=== PATIENT | female | born 1940 | race Caucasian/White ===

== ENCOUNTER 2018-12-12 14:10 | Outpatient (REF) | payer OTHER, SELFPAY ==
[2018-12-12 18:57] LABS: Glucose 88 mg/dL (70-100)
[2018-12-12 19:12] LABS: Calculated LDL 103 mg/dL; Cholesterol 216 mg/dL (50-200); HDL Cholesterol 107 mg/dL (40-60); Triglyceride 32 mg/dL (30-150)
== END 2018-12-12 14:30 ==
LOC: NCHCN 14:10
PROVIDERS: PCP Internal Medicine; Visit Provider Nurse Practitioner Family
DX: E78.00 Pure hypercholesterolemia, unspecified (principal); Z13.1 Encounter for screening for diabetes mellitus
CPT/HCPCS: 80061; 82947; 83721

== ENCOUNTER 2020-01-03 19:44 | Outpatient (REF) | payer OTHER, SELFPAY ==
[2020-01-03 22:09] LABS: Anion Gap 7.3 mmol/L (3-11); BUN 14 mg/dL (7-18); CO2 26.7 mmol/L (21.0-32.0); CREATININE 0.62 mg/dL (0.55-1.02); Calcium 9.1 mg/dL (8.5-10.1); Calculated LDL 141 mg/dL (<100); Chloride 101 mmol/L (98-107); Cholesterol 252 mg/dL (<200); Glucose 86 mg/dL (74-106); HDL Cholesterol 104 mg/dL (40-60); Potassium 4.4 mmol/L (3.5-5.1); Sodium 135 mmol/L (136-145); Triglyceride 35 mg/dL (<150)
[2020-01-03 22:12] LABS: Hemoglobin A1C 5.8 % (3.8-5.6)
[2020-01-04 17:34] LABS: Progesterone <0.2 ng/mL (See Table)
[2020-01-09 15:39] LABS: Estradiol, Mass Spectrometry 22 pg/mL; Estrone 137 pg/mL
== END 2020-01-03 20:04 ==
LOC: NCHCN 19:44
PROVIDERS: PCP Internal Medicine; Visit Provider Nurse Practitioner Family
DX: E78.5 Hyperlipidemia, unspecified (principal); R73.09 Other abnormal glucose; Z79.890 Hormone replacement therapy
CPT/HCPCS: 80048; 80061; 82306; 82670; 82679; 83036; 84144

== ENCOUNTER 2021-10-29 08:56 | Outpatient (REF) | payer MEDICARE, SELFPAY ==
[2021-10-29 20:42] LABS: Abs Immature Grans 0.03 10^3/uL (0.0-0.06); Absolute Basophil Count 0.02 10^3/uL (0.0-0.2); Absolute Lymphocyte Count 1.64 10^3/uL (1.2-3.4); Absolute Monocyte Count 0.62 10^3/uL (0.1-0.8); Absolute Neutrophil Count 2.85 10^3/uL (1.2-6.7); Basophils % 0.4; Eosinophils % 1.9; HCT 42.8 % (36.0-46.0); HGB 14.2 g/dL (11.2-15.7); Immature Grans % 0.6; Lymphocytes % 31.2; MCH 32.9 pg (27.0-33.0); MCHC 33.2 % (32.0-36.0); MCV 99 fL (80-95); MPV 9.3 fL (8.0-11.0); Monocytes % 11.8; Neutrophils % 54.1; Platelet Count 254 10^3/uL (130-400); RBC 4.31 10^6/uL (3.93-5.22); RDW 12.9 % (11.7-14.6); RDW-SD 47.8 fL; WBC 5.26 10^3/uL (4.4-10.8)
[2021-10-29 21:12] LABS: Hemoglobin A1C 5.8 % (<5.7)
[2021-10-29 21:23] LABS: ALT 25 U/L (14-59); AST 23 U/L (15-37); Albumin 3.7 g/dL (3.4-5.0); Alkaline Phosphatase 72 U/L (46-116); Anion Gap 6.6 mmol/L (3-11); BUN 18 mg/dL (7-18); Bilirubin, Total 0.7 mg/dL (0.2-1.0); CO2 30.4 mmol/L (21.0-32.0); CREATININE 0.7 mg/dL (0.55-1.02); Calcium 8.9 mg/dL (8.5-10.1); Calculated LDL 117 mg/dL (<100); Chloride 103 mmol/L (98-107); Cholesterol 227 mg/dL (<200); Glucose 92 mg/dL (74-106); HDL Cholesterol 103 mg/dL (40-60); Potassium 4.4 mmol/L (3.5-5.1); Sodium 140 mmol/L (136-145); TSH 1.15 uIU/mL (0.36-3.74); Total Protein 6.7 g/dL (6.4-8.2); Triglyceride 36 mg/dL (<150); Vitamin B12 739 pg/mL (193-986)
== END 2021-10-29 08:57 | disposition home or self-care (01) ==
LOC: NCHCN 08:56
PROVIDERS: PCP Internal Medicine; Visit Provider Nurse Practitioner Family
DX: R73.03 Prediabetes (principal); R03.0 Elevated blood-pressure reading, without diagnosis of hypertension; R79.89 Other specified abnormal findings of blood chemistry; R68.89 Other general symptoms and signs
CPT/HCPCS: 80053; 80061; 82607; 83036; 84443; 85025

== ENCOUNTER → 2021-11-25 01:04 | Outpatient (CLI) | payer MEDICARE, SELFPAY ==
--- NOTE | 2021-11-25 | DI.US_ITS ---
APPROVED REPORT Exam: Exercise Treadmill Patient Location: Out-Patient Room/Bed: Stress Nurse: Celi Grove RN Ordering Provider:ASHLI BECKWITH, Contact Number: [phone] BMI: 22.79 Baseline Rhythm: Sinus Rhythm Indications: SOB Medical History Medical History: Hyperlipidemia, prediabetes, SOB Cardiac Medications: None Allergies: PNA vaccine Cardiac Risk Factors: Hyperlipidemia, prediabetes, family hx Previous Cardiac Procedures: None Pretest Chest Pain Characteristics: None Exercise History: Indeterminate Physical Disabilities: None Lung Sounds: Clear to auscultation Heart Sounds: Regular Stress Test Details Test: Exercise stress testing was performed using a Bret protocol. Rest Stress HR Resting HR Supine: 76 bpm Max Heart Rate (APMHR): 141 bpm Resting HR Standin bpm Target HR (85% APMHR): 119 bpm Max HR Achieved: 141 bpm % of APMHR: 100 Recovery HR: 87 bpm HR response to stress: Normal HR response to stress BP Resting BP Supine: 142/78 mmHg Resting BP Standin/68 mmHg Max BP: 178/82 mmHg Recovery BP: 138/63 mmHg BP response to stress: Normal blood pressure response to stress. ECG Resting ECG: Sinus Rhythm Ectopy: None Stress ECG: Sinus Tachycardia ST Change: No significant ST segment changes noted Arrhythmia: Rare PVC, VPC's, Atrial fibrillation, SVT Recovery ECG: Sinus Rhythm Recovery ST Change: No significant ST segment changes noted Recovery Arrhythmia: Occasional PVCs, VPC Clinical Reason for Termination: Fatigue Stress Symptoms: General Fatigue, Dyspnea Exercise duration: 7 min59 sec Highest Stage Reached: Stage 3: 3.4 mph at 14% grade. Exercise capacity: 10.10 METs Angina Score: None Worthington Treadmill Score: 7.7 Rate Pressure Product: [id number] Stress ECG Conclusion 1. Resting electrocardiogram was within normal limits 2. Patient exercised on the Bret protocol and completed a workload of 10.10 METS 3. Normal heart rate and blood pressure response to exercise. Patient achieved 100% of predicted hea rt rate for age 4. There was no electrocardiographic evidence of myocardial ischemia 5. See stress echo report Worthington Treadmill Score is 7.7 which is Low risk. Stress Test Summary STAGE Time (mins) Speed (mph) Grade (%) HR BP SpO2 SYMPTOMS METS Supine 76 142/78 Standing 79 120/68 SpO2 95% 1 3 1.7 10 109 140/80 SpO2 96% 4.5 2 6 2.5 12 126 162/88 SpO2 92% 7 3 9 3.4 14 141 SpO2 92% 10 1 min recovery 117 178/82 SpO2 97% 3 min recovery 98 152/68 SpO2 97% 6 min recovery 87 138/68 SpO2 97% MPI Conclusion This was a stress echocardiogram. Resting echo showed normal LV systolic function, normal wall motion, EF approximately 60% Post exercise echo showed augmented contractility of all segments, EF jessenia to greater than 75% There was no echocardiographic evidence of myocardial ischemia
--- OUTSIDE RECORDS SUMMARY | 2021-11-25 01:06 | XMS_ITS | Encounter Summary ---
:1940 Author Organization [facility] [place] [address] Care Team Providers Name Role Phone Shwetha Ashton KODI Primary Care Provider Reason for Visit Reason Comments Blurred Vision Pseudophakia Consultation (Routine) - Closed Specialty Diagnoses / Procedures Referred By Contact Refer red To Contact Ophthalmology Diagnoses decreased vision od w/history of amd Sami Chamorro MD [address] [place] [address] [facility] [place] [place] [address] Phone: Fax: Referral ID Status Reason Start Date Expiration Date Visits V isits Requested Authorized [id number] Closed Consult, 09/27/2018 09/27/2019 1 1 Test & Treat Encounter Details Date Type Department Care Team Description 10/06/2018 Office Visit Ophthalmology at [facility] Jaleesa Ferguson Intermediate stage nonexudat padmini age-related macular degeneration of both eyes; [facility] MD [place] Nuclear [place] [address] Center [phone] [place], [place] [address] Social History Tobacco Use Types Packs/Day Years Used Date Never Smoker Smokeless Tobacco: Never Used Sex Assigned at Date Recorded Not on file documented as of this encounter Progress Notes Latonia Ferguson MD - 10/06/2018 12:30 PM EDT ASSESSMENT/PLAN: 1. Intermediate stage nonexudative age-related macular degeneration of both eyes Visual Acuity Visual Acuity (Snellen - Linear) Right Left Dist cc 20/60 20/30 Dist ph cc 20/25 NI Near cc 20/25 Correction: Glasses 1. Dry AMD OU Dr. Chamorro, thank you for the kind referral. Amarilis Sandoval is a patient with age-related macular degeneration. Fortunately, today's fundoscopic exam and multimodal imaging confirmed that it is the dry form of the disease for which treatment with intravitreal injections is not required. Reassurance provided and a copy of [place] [employer]'s written instructions were given to the patient (talking about AREDS2 vitamins, Amsler gridetc) 2. PCIOL OD - monitor 3. NS OS monitor Follow up 6mo for DFE, OCT OU Sooner PRN Latonia Ferguson MD, PhD Extended Ophthalmoscopy Indication: 1. Intermediate stage nonexudative age-related macular degeneration of both eyes Technique: A) Indirect ophthalmoscopy with scleral depression B) Slit lamp exam with 90D/78D lens Findings: Main Ophthalmology Exam Fundus Exam Right Left Macula Drusen Drusen documented in this encounter Plan of Treatment Not on filedocumented as of this encounter Procedures Procedure Name Priority Date/Time Associated Diagnosis Comme nts OCT RETINA - OU - Routine 10/06/2018 11:26 Intermediate stage Results for this BOTH EYES AM EDT nonexudative procedure are i n age-related macular the resu lts degeneration of both section . eyes documented in this encounter Results OCT [id number] EYES (10/06/2018 11:26 AM EDT) Anatomical Region Laterality Modality Other Specimen (Source) Anatomical Location Collection Method / Collectio n Time Received Time / Laterality Volume Narrative 10/06/2018 11:26 AM EDT Right Eye Quality was good. Scan locations include d subfoveal. Findings include normal foveal contour, subretinal scarri ng. Left Eye Quality was good. Scan locations include d subfoveal. Findings include normal foveal contour, subretinal scarri ng. Latonia Ferguson MD OPHTHALMOLOGY SERVICES ILEANA QUISPE documented in this encounter Visit Diagnoses Diagnosis Intermediate stage nonexudative age-rela sherwin macular degeneration of both eyes Nuclear sclerosis of left eye documented in this encounter Care Teams Corporate Legal Secretary Relationship Specialty Start Date End Date Shwetha Ashton, HOME CARE PHYSICAL THERAPIST PCP - General Family Medicine 08/27/15 03/26/19 documented as of this encounter
--- OUTSIDE RECORDS SUMMARY | 2021-11-25 01:06 | XMS_ITS | Encounter Summary ---
:1940 [place] [address] Care Team Providers Name Role Phone Jose David Brown MD Primary Care Provider Reason for Visit Reason Comments Skin Cancer Examination Skin Lesion Consultation (Routine) - Specialty Diagnoses / Procedures Referred By Contact Refer red To Contact Dermatology Diagnoses Encounter for general adult medical examination without abnormal findings Annual Exam Aamrilys Anderson, MINERAL ECONOMIST [facility] Dermatology Procedures [facility] [address] [place], [place] [address] [place] [address] Fax: Referral ID Status Reason Start Date Expiration Date Visits V isits Requested Authorized [id number] Consult, Test 12/12/2018 06/14/2019 6 6 & Treat PCP Updated and/or Approved Encounter Details Date Type Department Care Team Description 03/27/2019 Office Visit Dermatology at [facility] Jose Haley MD Lentigines; [facility] Woods angioma; [address] [place] [address] [facility] [phone] [address]-DERMATOLOGY [place], [place] [address] Social History Tobacco Use Types Packs/Day Years Used Date Never Smoker Smokeless Tobacco: Never Used Alcohol Use Standard Drinks/Week Comments Yes 0 (1 standard drink = 0.6 oz pure alcoho l) Sex Assigned at Date Recorded Not on file documented as of this encounter Progress Notes Penny Haley MD - 03/27/2019 11:15 AM EST DERMATOLOGY CONSULT NOTE Date of service: 03/27/2019 Amarilis Sandoval : 1940 Provider: Penny Haley MD Preferred name: Amarilis Preferred contact method with results: Home Message okay: yes PROBLEM: Skin Cancer Screening The patient is seen at the request of Amarilys Anderson, who instructed the patient to be seen for evaluation of above. SKIN HISTORY: Denies any previous skin cancers AK- LN2 HPI Ms. Sandoval is a 78 y.o. year old female. New patient, referred by Amarilys Anderson. Here today for a full skin examination and has areas of concern on her forehead and nose. Notes she has a lot of sun exposure. ADR: Patient has no known allergies. MEDS: Current Outpatient Medications on File Prior to Visit Medication Sig Dispense Refill ??? vit A/vit C/vit E/zinc/copper (PRESERVISION AREDS ORAL) Take by mouth. No current facility-administered medications on file prior to visit. ROS General: feeling well Skin: denies other skin complaints EXAM General: NAD, pleasant, cooperative Skin: The patient was asked to disrobe to the level of their comfort. Full skin examination of the scalp, hair, head, face, neck, back, chest, abdomen, right and left upper extremities, right and left lower extremities and buttocks was normal with the exception of the findings listed below. Significant skin findings: A. Sun exposed areas: 0.3-0.6cm light-brown evenly pigmented, well-demarcated macules. B. Multiple 0.2-0.4cm bright red, well-demarcated papules C. Actinic damage on face ASSESSMENT/PLAN: A. Solar Lentigines - Benign. No treatment necessary. - Reassured about benign nature and natural history. - Sun avoidance, protective clothing and the use of SPF 30+ sunscreen is advised. Observe closely for skin changes and call if such occurs. B. Woods Angiomas - Benign. No treatment necessary. - Reassured about benign nature and natural history. C. Actinic damage on face -- recommended using 5FU daily to scaly spots on face x21 days RTC 1 year for FSE Note initiated and routed to physician for review and change by: Olamide Hooker, JAYLIN I, David Roth, have performed the documentation for this encounter in the presence of and acting as a scribe for PENNY HALEY MD. I performed the services which were documented by the scribe, and I agree with the accuracy of the documentation in this encounter. PENNY HALEY MD. Penny Haley MD Section of Dermatology 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
--- OUTSIDE RECORDS SUMMARY | 2021-11-25 01:06 | XMS_ITS | Encounter Summary ---
:1940 Author Organization [facility] [place] [address] Care Team Providers Name Role Phone Shwetha Ashton APRN Primary Care Provider Reason for Visit Reason Comments Skin Check Consultation (Routine) - Closed Specialty Diagnoses / Procedures Referred By Contact Refer red To Contact Dermatology Diagnoses SKIN ASSESSMENT Shwetha Ashton, Trevin Arteaga MD [address] [place] [address] [facility] [address] [place], [place] DERMATOLOGY [address] [place] [address] Fax: Referral ID Status Reason Start Date Expiration Date Visits V isits Requested Authorized [id number] Closed Consult, 08/27/2015 08/26/2016 1 1 Test & Treat Connection Center Encounter Details Date Type Department Care Team Description 01/21/2016 Office Visit Dermatology at [facility], Actinic keratosis Briana JACOBSON [address] [facility] [address] [facility] DERMATOLOGY [place], [place] [address] [phone] Social History Tobacco Use Types Packs/Day Years Used Date Never Smoker Sex Assigned at Date Recorded Not on file documented as of this encounter Progress Notes Trevin Raya MD - 01/21/2016 1:30 PM EDT PROBLEM: Skin check. Lauren is a 75-year-old woman who would like to have a general skin check. She has grown up having getting a lot of sun and she and her are gentleman farm people up at [place]. She denies any personal history of skin cancer melanoma. She occasionally uses sunscreen. She would like me to check a spot near the umbilicus, as well as do checking of sun-exposed areas for possible skin cancer premalignant lesions. Full examination reveals a pleasant 75-year-old woman who is darkly tanned and has numerous solar lentigines and ephelides on the examination of her face, her neck, chest, back, hands and forearms, thighs and calves. She has a 2 cm solar lentigo on the left upper forehead. She has a single actinic on the right lateral cheek. She has a keloid that has developed just below her umbilicus, spreading inferiorly from where she had a laparoscopic procedure done about 20 years ago. Interestingly, this keloid developed well after her surgery. This is entirely asymptomatic. Otherwise, examination today is benign. There is no evidence of any malignant lesions. ASSESSMENT AND PLAN: 1. Actinic keratoses facial. a. LN2 x2 applied to the left forehead actinic keratosis present within a solar lentigo and to the right cheek actinic keratosis. b. The patient reassured about remainder of benign examinations. c. Stressed the importance of sun avoidance precautions for face and wearing a broad-brimmed hat when out of doors. d. Today's baseline examination was benign. I would recommend followup p.r.n. at the request of the patient, or of her PCP, Shwetha Ashton. CC: Shwetha Ashton documented in this encounter Plan of Treatment Not on filedocumented as of this encounter Visit Diagnoses Diagnosis Actinic keratosis documented in this encounter Care Teams Miniature Set Constructor Relationship Specialty Start Date End Date Shwetha Ashton APRN PCP - General Family Medicine 08/27/15 03/26/19 documented as of this encounter
--- OUTSIDE RECORDS SUMMARY | 2021-11-25 01:06 | XMS_ITS | Encounter Summary ---
:1940 Author Organization [facility] [place] [address] Care Team Providers Name Role Phone Jose David Brown MD Primary Care Provider Reason for Visit Reason Comments Macular Degeneration Encounter Details Date Type Department Care Team Description 04/18/2019 Office Visit Ophthalmology at [facility] C Phyllis, Intermediate stage nonexudat padmini age-related macular degeneration of both eyes; [facility] MD [place] Posterior vitreous detachment [place] [address] Center [phone] [place] [address] Social History Tobacco Use Types Packs/Day Years Used Date Never Smoker Smokeless Tobacco: Never Used Alcohol Use Standard Drinks/Week Comments Yes 0 (1 standard drink = 0.6 oz pure alcoho l) Sex Assigned at Date Recorded Not on file documented as of this encounter Progress Notes Latonia Ferguson MD - 04/18/2019 1:15 PM EST ASSESSMENT/PLAN: 1. Intermediate stage nonexudative age-related macular degeneration of both eyes 2. Posterior vitreous detachment of right eye Visual Acuity Visual Acuity (Snellen) Right Left Dist cc 20/50 20/40 Dist ph cc 20/40 20/30 Near cc 20/60 20/40+3 Correction: Glasses 1. Dry AMD OU - Stable exam today 04/18/2019 and the AMD is still dry and moderate - Continue to use AREDS2 and Amsler grid 2. Vitreous syneuresis OD (Dx 10/2018) - Again there is no PVD or RT/RD OD. Reassurance provided. 3. PCIOL OD - monitor 4. NS OS Upon exam, recommended CE OS for moderate cataracts. Okay to proceed from a retina standpoint. Follow up in 8 months for DFE/OCT OU I, Erasmo HodgesCasper Cheryl, have performed the documentation for this encounter in the presence of, and acting as a scribe for Latonia Ferguson MD. I performed the services which were documented by the scribe, and I agree with the accuracy of the documentation in this encounter. Latonia Ferguson MD, PhD Extended Ophthalmoscopy Indication: 1. Intermediate stage nonexudative age-related macular degeneration of both eyes 2. Posterior vitreous detachment of right eye Technique: A) Indirect ophthalmoscopy with scleral depression B) Slit lamp exam with 90D/78D lens Findings: Main Ophthalmology Exam External Exam Right Left External Normal Normal Slit Lamp Exam Right Left Lids/Lashes Normal Normal Conjunctiva/Sclera White and quiet White and quiet Cornea Clear Clear Anterior Chamber Deep and quiet Deep and quiet Iris Round and reactive Round and reactive Lens PCIOL 2-3+ NS Fundus Exam Right Left Vitreous vitreous syneuresis, 1+ vit haze PVA Disc Normal Normal C/D Ratio 0.3 0.3 Macula Drusen Drusen Vessels Normal Normal Periphery RPE changes, yellow spots 3:00 RPE changes documented in this encounter Plan of Treatment Not on filedocumented as of this encounter Procedures Procedure Name Priority Date/Time Associated Diagnosis Comme nts OCT RETINA - OU - Routine 04/18/2019 3:05 PM Intermediate stag e Results for this BOTH EYES EST nonexudative procedure are i n age-related macular the resu lts degeneration of both section . eyes Posterior vitreous detachment of right eye documented in this encounter Results OCT Retina - OU - Both Eyes (04/18/2019 3:05 PM EST) Anatomical Region Laterality Modality Other Specimen (Source) Anatomical Location Collection Method / Collectio n Time Received Time / Laterality Volume Narrative 04/18/2019 3:05 PM EST Right Eye Quality was good. Scan locations include d subfoveal. Findings include normal foveal contour, subretinal scarri ng. Left Eye Quality was good. Scan locations include d subfoveal. Findings include normal foveal contour, subretinal scarri ng. Latonia Ferguson MD OPHTHALMOLOGY SERVICES ILEANA QUISPE documented in this encounter Visit Diagnoses Diagnosis Intermediate stage nonexudative age-rela sherwin macular degeneration of both eyes Posterior vitreous detachment of right e ye Vitreous degeneration documented in this encounter Care Teams Incident Response Consultant Relationship Specialty Start Date End Date Jose David Brown MD PCP - General General Internal Medicine 03/27/19 [address] [place] [address] documented as of this encounter
--- OUTSIDE RECORDS SUMMARY | 2021-11-25 01:06 | XMS_ITS | Encounter Summary ---
:1940 Author Organization [facility] [place] [address] Care Team Providers Name Role Phone Jose David Brown MD Primary Care Provider Reason for Visit Reason Comments Macular Degeneration Encounter Details Date Type Department Care Team Description 09/26/2020 Office Visit Ophthalmology at [facility] Jaleesa Ferguson, Intermediate stage [facility] MD [place] nonexudative [facility] [place] [address] degeneration of both [phone] [place], [place] [address] eyes Social History Tobacco Use Types Packs/Day Years Used Date Never Smoker Smokeless Tobacco: Never Used Alcohol Use Standard Drinks/Week Comments Yes 0 (1 standard drink = 0.6 oz pure alcoho l) Sex Assigned at Date Recorded Not on file documented as of this encounter Progress Notes [place]onia Ferguson MD - 09/26/2020 10:30 AM EDT ASSESSMENT/PLAN: 1. Intermediate stage nonexudative age-related macular degeneration of both eyes Visual Acuity Visual Acuity (Snellen - Linear) Right Left Dist cc 20/25 -1 20/40 +2 Dist ph cc NI NI Near cc 20/20-3 20/20-2 Correction: Glasses 1. Dry AMD OU - Fortunately, there are no signs of exudation today 09/26/2020 Recommended AREDS2 vitamins, daily use of Amsler grid, discouraged smoking and encouraged healthy diet 2. Vitreous syneuresis OD (Dx 10/2018) - Again there is no PVD or RT/RD OD. Reassurance provided. 3. PCIOL OU - Monitor Follow up with local quarry plant crusher operator (with Optical Coherence Tomography machine) for comprehensive care Follow up retina PRN I, Emy Shepherd, have performed the documentation for this encounter [...] and reactive Round and reactive Lens PCIOL PCIOL Fundus Exam Right Left Vitreous vitreous syneuresis, 1+ vit haze PVA Disc Normal Normal C/D Ratio 0.3 0.3 Macula Drusen Drusen Vessels Normal Normal Periphery RPE changes, yellow spots 9:00 RPE changes documented in this encounter Plan of Treatment Not on filedocumented as of this encounter Procedures Procedure Name Priority Date/Time Associated Diagnosis Comme nts OCT RETINA - OU - Routine 09/26/2020 11:43 Intermediate stage Results for this BOTH EYES AM EDT nonexudative procedure are i n age-related macular the resu lts degeneration of both section . eyes documented in this encounter Results OCT Retina - OU - Both Eyes (09/26/2020 11:43 AM EDT) Anatomical Region Laterality Modality Other Specimen (Source) Anatomical Location Collection Method / Collectio n Time Received Time / Laterality Volume Narrative 09/26/2020 11:43 AM EDT Right Eye Quality was good. Scan locations include d subfoveal. Progression has been stable. Findings include normal foveal c ontour, subretinal scarring. Left Eye Quality was good. Scan locations include d subfoveal. Progression has been stable. Findings include normal foveal c ontour, subretinal scarring. Latonia Ferguson MD OPHTHALMOLOGY SERVICES ILEANA QUISPE documented in this encounter Visit Diagnoses Diagnosis Intermediate stage nonexudative age-rela sherwin macular degeneration of both eyes documented in this encounter Care Teams Office Coordinator Receptionist Relationship Specialty Start Date End Date Jose David Brown MD PCP - General General Internal Medicine 03/27/19 [address] [place] [address] documented as of this encounter
--- OUTSIDE RECORDS SUMMARY | 2021-11-25 01:06 | XMS_ITS | Encounter Summary ---
:1940 Author Organization [facility] Address [facility] [place] [address] Care Team Providers Name Role Phone Shwetha Ashton KODI Primary Care Provider Reason for Visit Reason Comments Eye Problem Encounter Details Date Type Department Care Team Description 10/24/2018 Office Visit Ophthalmology at [facility] Jaleesa Ferguson Intermediate stage nonexudat padmini age-related macular degeneration of both eyes; [facility] MD [place] Nuclear sclerosis of left eye; Drive [facility] Posterior vitre[place] [address] [phone] [place] [id number] Social History Tobacco Use Types Packs/Day Years Used Date Never Smoker Smokeless Tobacco: Never Used Alcohol Use Standard Drinks/Week Comments Yes 0 (1 standard drink = 0.6 oz pure alcoho l) Sex Assigned at Date Recorded Not on file documented as of this encounter Progress Notes Latonia Ferguson MD - 10/24/2018 10:30 AM EDT ASSESSMENT/PLAN: 1. Intermediate stage nonexudative age-related macular degeneration of both eyes 2. Nuclear sclerosis of left eye 3. Posterior vitreous detachment of right eye Visual Acuity Visual Acuity (Snellen - Linear) Right Left Dist cc 20/50 +2 20/40 Dist ph cc NI 20/30 Near cc 20/60 20/30 Correction: Glasses 1. New Posterior vitreous detachment OD (Dx 10/2018) - RD precautions discussed - Monitor for now 2. Dry AMD OU - still dry - Continue to use AREDS2 and Amsler grid 3. PCIOL OD - monitor 4. NS OS monitor Follow up 1mo for DFE OU Sooner PRN I, Jose David Hannon, have performed the documentation for this encounter in the presence of, and acting as a scribe for Latonia Ferguson MD. I performed the services which were documented by the scribe, and I agree with the accuracy of the documentation in this encounter. Latonia Ferguson MD, PhD Extended Ophthalmoscopy Indication: 1. Intermediate stage nonexudative age-related macular degeneration of both eyes 2. Nuclear sclerosis of left eye 3. Posterior vitreous detachment of right eye Technique: [...] Round and reactive Round and reactive Lens Posterior chamber intraocular lens Nuclear sclerosis Fundus Exam Right Left Vitreous PVD, 1+ vit haze PVA Disc Normal Normal C/D Ratio 0.3 0.3 Macula Drusen Drusen Vessels Normal Normal Periphery RPE changes , PVD RPE changes documented in this encounter Plan of Treatment Not on filedocumented as of this encounter Procedures Procedure Name Priority Date/Time Associated Diagnosis Comme nts OCT RETINA - OU - Routine 10/24/2018 11:53 Intermediate stage Results for this BOTH EYES AM EDT nonexudative procedure are i n age-related macular the resu lts degeneration of both section . eyes documented in this encounter Results OCT Fzziai-HV-URUR EYES (10/24/2018 11:53 AM EDT) Anatomical Region Laterality Modality Other Specimen (Source) Anatomical Location Collection Method / Collectio n Time Received Time / Laterality Volume Narrative 10/24/2018 11:53 AM EDT Right Eye Quality was good. Scan locations include d subfoveal. Findings include normal foveal contour, subretinal scarri ng. Left Eye Quality was good. Scan locations include d subfoveal. Findings include normal foveal contour, subretinal scarri ng. Latonia Ferguson MD [facility] documented in this encounter Visit Diagnoses Diagnosis Intermediate stage nonexudative age-rela sherwin macular degeneration of both eyes Nuclear sclerosis of left eye Posterior vitreous detachment of right e ye Vitreous degeneration documented in this encounter Care Teams Epic Prelude Analyst Relationship Specialty Start Date End Date Shwetha Ashton, FIELD PARTY MANAGER PCP - General Family Medicine 08/27/15 03/26/19 documented as of this encounter
--- OUTSIDE RECORDS SUMMARY | 2021-11-25 01:06 | XMS_ITS | Encounter Summary ---
:1940 Author Organization [facility] [place] [address] Care Team Providers Name Role Phone Shwetha Ashton KODI Primary Care Provider Reason for Visit Reason Comments Macular Degeneration Encounter Details Date Type Department Care Team Description 01/05/2019 Office Visit Ophthalmology at [facility] Jaleesa Ferguson, Intermediate stage [facility] MD [place] [facility] [place] [address] degeneration of both [phone] [place], [place] [phone] eyes Social History Tobacco Use Types Packs/Day Years Used Date Never Smoker Smokeless Tobacco: Never Used Alcohol Use Standard Drinks/Week Comments Yes 0 (1 standard drink = 0.6 oz pure alcoho l) Sex Assigned at Date Recorded Not on file documented as of this encounter Progress Notes Latonia Ferguson MD - 01/05/2019 10:15 AM EDT ASSESSMENT/PLAN: 1. Intermediate stage nonexudative age-related macular degeneration of both eyes Visual Acuity Visual Acuity (Snellen - Linear) Right Left Dist cc 20/50 20/30 -1 Dist ph cc 20/30 -2 NI Near cc 20/20 20/20 Correction: Glasses 1. Vitreous syneuresis OD (Dx 10/2018) - There's no PVD or tears/RD OD. Reassurance provided. 2. Dry AMD OU - still dry - Continue to use AREDS2 and Amsler grid 3. PCIOL OD - monitor 4. NS OS monitor ~3mo for DFE/OCT OU Sooner PRN I, Erasmo Luna, have performed the documentation for this encounter [...] and reactive Round and reactive Lens PCIOL NS Fundus Exam Right Left Vitreous vitreous syneuresis, 1+ vit haze PVA Disc Normal Normal C/D Ratio 0.3 0.3 Macula Drusen Drusen Vessels Normal Normal Periphery RPE changes, yellow spots 3:00 RPE changes documented in this encounter Plan of Treatment Not on filedocumented as of this encounter Procedures Procedure Name Priority Date/Time Associated Diagnosis Comme nts OCT RETINA - OU - Routine 01/05/2019 12:18 Intermediate stage Results for this BOTH EYES PM EDT nonexudative procedure are i n age-related macular the resu lts degeneration of both section . eyes documented in this encounter Results OCT Sovxsw-SJ-MOUT EYES (01/05/2019 12:18 PM EDT) Anatomical Region Laterality Modality Other Specimen (Source) Anatomical Location Collection Method / Collectio n Time Received Time / Laterality Volume Narrative 01/05/2019 12:18 PM EDT Right Eye Quality was good. Scan locations include d subfoveal. Findings include normal foveal contour, subretinal scarri ng. Left Eye Quality was good. Scan locations include d subfoveal. Findings include normal foveal contour, subretinal scarri ng. Latonia Ferguson MD OPHTHALMOLOGY SERVICES [facility] documented in this encounter Visit Diagnoses Diagnosis Intermediate stage nonexudative age-rela sherwin macular degeneration of both eyes documented in this encounter Care Teams Pocket Builder Relationship Specialty Start Date End Date Shwetha Ashton APRN PCP - General Family Medicine 08/27/15 03/26/19 documented as of this encounter
--- OUTSIDE RECORDS SUMMARY | 2021-11-25 01:07 | XMS_ITS | Encounter Summary ---
:1940 Author Organization [facility] Address [address] [place] [address] Care Team Providers Name Role Phone Unavailable Primary Care Provider Unavailable Encounter Details Date Type Department Care Team Description 01/17/2009 Orders Only [facility] Bob Mclaughlin MD Laboratory Services - [address] [place] [id number] [place] [address] [phone] Social History Tobacco Use Types Packs/Day Years Used Date Never Assessed Sex Assigned at Date Recorded Not on file documented as of this encounter Plan of Treatment Not on filedocumented as of this encounter Procedures Procedure Name Priority Date/Time Associated Diagnosis Comme [facility] SURGICAL PATHOLOGY Routine 01/17/2009 0:00 EDT Re sults for this procedure are i n the results section. documented in this encounter Results SURGICAL PATHOLOGY (01/17/2009 0:00 EDT) Pathology Report: SURGICAL PATHOLOGY REPORT ? ANA LAURA ROLDAN Reports generated via [employer] interface contain original data; ? LAB however they are lacking the format of the original report. ? Caution should be taken when reading/interpreting unformatted reports. ? Name: ? RANGEL, TAN S ? Accession #: ? [id number] ? : ? 1940 (Age: 68) ??F ? Collec t Date: ? 01/17/2009 ? Location: ? [facility] ? R eceive Date: ? 01/18/2009 ? Provider: ALEX MCLAUGHLIN MD ? Copy to: MICHAEL TOBIAS MD ? Final Pathologic Diagnosis: ? Skin of forehead, lef t, shave biopsy: ? - Seborrheic keratosis. ? Microscopic Description: ? The stratum corneum i s thickened by laminated orthohyperkeratosis. ??The ? epidermis is hyperplastic wi th papillomatosis and acanthosis. ??The keratinocytes have a basaloid appearance w ith round regular nuclei. ??(Dr. Miramontes)/mms ? Document reviewed and electr onically signed by: ? Janis Miramontes MD ? Report ??Date: 01/22/2009 20 :25 ? By the signature above, the attending physician certifies that he/she has ? personally conducted a gross and/or microscopic examination of the described ? specimens and rendered or co nfirmed the above diagnosis. ? Specimen(s) Received: ? Shave biopsy of lesio n L forehead ? Clinical History: ? L forehead lesion ??r ecent change in color, prob seborrheic keratosis; ? clinical diagnosis code: 709 .9 ? Gross Description: ? Received in formalin labelled Tan Rangel and left forehead is a shave biopsy of a smiley, grainy, asy mmetric plaque measuring 0.7 x 0.6 x 0.2 cm. ??The ?? specimen is trisected and fontana bmitted entirely in one cassette. ??(Salvador Webb)/[facility] ? End of Report ? Specimen Performing Organization Address City/State/ZIP Code Phon e Number [facility] [address] [place] [address] SERVICES [facility] [address] [place] [address] documented in this encounter Visit Diagnoses Not on filedocumented in this encounter
--- OUTSIDE RECORDS SUMMARY | 2021-11-25 01:07 | XMS_ITS | Clinical Summary ---
:1940 Author Organization [facility] Address [address] [place] [address] Care Team Providers Name Role Phone Jose David Brown MD Primary Care Provider Social History Tobacco Use Types Packs/Day Years Used Date Never Assessed Sex Assigned at Date Recorded Not on file Plan of Treatment Health Maintenance Due Date Last Done Comments Fall Risk Screening 07/20/2007 Care Teams Radiation Technician Relationship Specialty Start Date End Date Jose David Brown MD PCP - General 01/22/09 [address] [place] [address]
--- OUTSIDE RECORDS SUMMARY | 2021-11-25 01:07 | XMS_ITS | Encounter Summary ---
:1940 Author Organization [facility] Address [address] [place] [address] Care Team Providers Name Role Phone Jose David Brown MD Primary Care Provider Encounter Details Date Type Department Care Team Description 01/04/2020 Lab Requisition [facility] Outr Resulting Lab, Pathology & Laboratory Provider [facility] [address] [place], [place] [id number] Social History Tobacco Use Types Packs/Day Years Used Date Never Assessed Sex Assigned at Date Recorded Not on file documented as of this encounter Plan of Treatment Not on filedocumented as of this encounter Procedures Procedure Name Priority Date/Time Associated Diagnosis Comme nts PROGESTERONE Routine 01/03/2020 12:05 EDT Results for this procedure are i n the results section . documented in this encounter Results PROGESTERONE (01/03/2020 12:05 EDT) Progesterone <0.2 See Table [facility] Comment: ng/mL LABORATORY Female Reference Ranges: SERVICES PHYSIOLOGICAL STATUS ?EXPECTED RANGE ? >= 18 Yrs Menstruating: (Non-) Follicular Phase: ? <= 1.4 ng/mL Luteal Phase: ? 3.3 - 25.6 ng/mL Mid-luteal Phase: ? 4.4 - 28.0 ng/mL Postmenopausal: ? <= 0.7 ng/mL : -------- First Trimester: ?11.2 - 90.0 ng/mL Second Trimester: ? 25.6 - 89.4 ng/mL Third Trimester: ?48.4 - 422.5ng/mL For ectopic , consult a pathologist Reference Ranges for female patients <18 years o ld have not been established. Specimen Blood - Venous blood (substance) Performing Organization Address City/State/ZIP Code Phon e Number [facility] [address] [place] [address] SERVICES documented in this encounter Visit Diagnoses Not on filedocumented in this encounter Care Teams Editorial Intern Relationship Specialty Start Date End Date Jose David Brown MD PCP - General 01/22/09 [address] [place] [address] documented as of this encounter
== END ==
PROVIDERS: PCP Internal Medicine; Visit Provider Nurse Practitioner Family
DX: R06.02 Shortness of breath (principal)
CPT/HCPCS: 93306; 93350; 93017

== ENCOUNTER 2022-10-06 09:04 | Outpatient (REF) | payer MEDICARE, SELFPAY ==
[2022-10-06 18:42] LABS: BUN 13 mg/dL (7-18); CREATININE 0.7 mg/dL (0.55-1.02); Calcium 8.9 mg/dL (8.5-10.1); Chloride 98 mmol/L (98-107); Estimated GFR 87.37 (mL/min/1.73m2); Glucose 101 mg/dL (74-106); Potassium 4.8 mmol/L (3.5-5.1); Sodium 134 mmol/L (136-145)
== END 2022-10-06 09:05 | disposition home or self-care (01) ==
LOC: NCHCN 09:04
PROVIDERS: PCP Internal Medicine; Visit Provider Nurse Practitioner Family
DX: R73.03 Prediabetes (principal)
CPT/HCPCS: 80048

== ENCOUNTER 2023-01-04 15:44 | Outpatient (REF) | payer MEDICARE, OTHER, SELFPAY ==
[2023-01-04 19:48] LABS: HCT 42.1 % (36.0-46.0); HGB 14.3 g/dL (11.2-15.7); MCH 32.4 pg (27.0-33.0); MCV 96 fL (80-95); MPV 9.2 fL (8.0-11.0); Platelet Count 269 10^3/uL (130-400); RBC 4.41 10^6/uL (3.93-5.22); RDW 12.6 % (11.7-14.6); RDW-SD 44.3 fL; WBC 8.02 10^3/uL (4.4-10.8)
[2023-01-04 20:41] LABS: TSH 0.78 uIU/mL (0.36-3.74)
== END 2023-01-04 15:45 | disposition home or self-care (01) ==
LOC: NCHCN 15:44
PROVIDERS: PCP Internal Medicine; Visit Provider Nurse Practitioner Family
DX: R53.83 Other fatigue (principal); R73.03 Prediabetes
CPT/HCPCS: 85027; 84443

== ENCOUNTER 2023-10-06 10:56 | Outpatient (REF) | payer MEDICARE, SELFPAY ==
[2023-10-06 21:37] LABS: ALT 28 U/L (14-59); AST 23 U/L (15-37); Albumin 3.9 g/dL (3.4-5.0); Alkaline Phosphatase 82 U/L (46-116); Anion Gap 7.9 mmol/L (3-11); BUN 15 mg/dL (7-18); Bilirubin, Total 0.6 mg/dL (0.2-1.0); CO2 28.1 mmol/L (21.0-32.0); CREATININE 0.9 mg/dL (0.55-1.02); Calcium 9.3 mg/dL (8.5-10.1); Chloride 101 mmol/L (98-107); Estimated GFR 64.23 (mL/min/1.73m2); Glucose 100 mg/dL (74-106); Potassium 4.8 mmol/L (3.5-5.1); Sodium 137 mmol/L (136-145); Total Protein 7.2 g/dL (6.4-8.2)
== END 2023-10-06 10:57 | disposition home or self-care (01) ==
LOC: NCHCN 10:56
PROVIDERS: PCP Internal Medicine; Visit Provider Nurse Practitioner Family
DX: Z81.8 Family history of other mental and behavioral disorders (principal)
CPT/HCPCS: 80053

== ENCOUNTER 2024-10-09 15:52 | Outpatient (REF) | payer OTHER, SELFPAY ==
[2024-10-09 19:38] LABS: ALT 25 U/L (14-59); AST 31 U/L (15-37); Albumin 3.7 g/dL (3.4-5.0); Alkaline Phosphatase 74 U/L (46-116); Anion Gap 8.2 mmol/L (3-11); BUN 21 mg/dL (7-18); Bilirubin, Total 0.6 mg/dL (0.2-1.0); CO2 26.8 mmol/L (21.0-32.0); CREATININE 0.8 mg/dL (0.55-1.02); Calcium 9.3 mg/dL (8.5-10.1); Calculated LDL 124 mg/dL (<100); Chloride 101 mmol/L (98-107); Cholesterol 218 mg/dL (<200); Estimated GFR 73.52 (mL/min/1.73m2); Glucose 102 mg/dL (74-106); HDL Cholesterol 88 mg/dL (>or=50); Potassium 4.8 mmol/L (3.5-5.1); Sodium 136 mmol/L (136-145); Total Protein 7.1 g/dL (6.4-8.2); Triglyceride 33 mg/dL (<150)
== END 2024-10-09 15:53 | disposition home or self-care (01) ==
LOC: NCHCN 15:52
PROVIDERS: PCP Internal Medicine; Visit Provider Nurse Practitioner Family
DX: Z13.1 Encounter for screening for diabetes mellitus (principal); Z13.220 Encounter for screening for lipoid disorders
CPT/HCPCS: 80053; 80061